=== PATIENT | female | born 1965 | race Caucasian/White ===

== ENCOUNTER 2017-01-11 21:44 | Inpatient (IN) | payer OTHER ==
[~2017-01-11] VITALS: Ht 167.6 cm; Wt 83.4 kg
[~2017-01-11 21:44] MED LIST: FOSAMAX PO; IMITREX50 MG PO; INDERAL LA120 MG PO; MOTRIN800 MG PO; NEURONTIN600 M1 PO; NORTRIPTYLINE H50 MG PO; NORVASC2.5 MG PO; TRAMADOL HCL50 MG PO; ULTRAM ER100 MG PO; [UNRECOGNIZED DRUG - OTHER] PO
[2017-01-11 23:14] LABS: HEMATOCRIT 44.7 % (36.0-46.0); MCH 29.5 PG (29.0-34.0); MCV 92.4 FL (83-99); MEAN PLAT.VOLUME 10.8 uM^3 (9.5-12.4); PLATELET COUNT 213 K/uL (156-360); RBC DIS.WIDTH-CV 13.2 % (11.8-14.6); RBC DIS.WIDTH-SD 44.5 % (39-53); RED BLOOD COUNT 4.84 M/uL (3.80-5.20); WHITE BLOOD COUNT 7.9 K/uL (4.1-10.2)
[2017-01-11 23:24] LABS: CHLORIDE 105 mEq/L (99-109); POTASSIUM 4.2 mEq/L (3.7-5.4); SODIUM 140 mEq/L (136-147)
[2017-01-11 23:25] LABS: GLUCOSE 139 mg/dL (70-99)
[2017-01-11 23:27] LABS: ANION GAP 10 MEQ/L (2-14)
[2017-01-11 23:29] LABS: GFR ESTIMATE (CALCULATED) > 59 mL/min/
[2017-01-11 23:30] LABS: UREA NITROGEN (BUN) 16 mg/dL (9-23)
[2017-01-12 00:36] LABS: TOTAL BILIRUBIN 1.9 mg/dL (0.0-1.0)
[2017-01-12 00:37] LABS: ALKALINE PHOSPHATASE 140 IU/L (3-129)
[2017-01-12 00:40] LABS: DIRECT BILIRUBIN 0.8 mg/dL (0.0-0.3)
[2017-01-12 00:41] LABS: LIPASE 31 U/L (1.0-51.0)
[2017-01-12 00:45] LABS: TROP-I INTERPRETATION NEGATIVE; TROPONIN-I < 0.01 ng/mL (0.0-0.30)
[2017-01-12] MEDS ORDERED: INDERAL LA160 MG PO (01:26)
[2017-01-12] MEDS ORDERED: NORTRIPTYLINE H25 MG PO (01:27)
[2017-01-12] MEDS ORDERED: ALENDRONATE SOD35 MG PO (01:27)
[2017-01-12] MEDS ORDERED: NEURONTIN600 MG PO (01:27)
[2017-01-12] MEDS ORDERED: IMITREX100 MG PO (01:27)
[2017-01-12 02:56] VITALS: BP 138/75
[2017-01-12 06:44] LABS: HEMATOCRIT 41.7 % (36.0-46.0); MCH 30.3 PG (29.0-34.0); MCHC 32.9 G/DL (30.0-36.0); MCV 92.3 FL (83-99); MEAN PLAT.VOLUME 10.6 uM^3 (9.5-12.4); PLATELET COUNT 183 K/uL (156-360); RBC DIS.WIDTH-CV 13.1 % (11.8-14.6); RBC DIS.WIDTH-SD 44.4 % (39-53); RED BLOOD COUNT 4.52 M/uL (3.80-5.20)
[2017-01-12 06:48] LABS: WHITE BLOOD COUNT 4.6 K/uL (4.1-10.2)
[2017-01-12 07:12] VITALS: BP 119/74
[2017-01-12 08:36] LABS: ALKALINE PHOSPHATASE 161 IU/L (3-129); ANION GAP 8 MEQ/L (2-14); CHLORIDE 105 MEQ/L (99-109); GFR ESTIMATE (CALCULATED) > 59 mL/min/; GLUCOSE 139 mg/dL (70-99); LIPASE 22 U/L (1.0-51.0); POTASSIUM 4.3 MEQ/L (3.7-5.4); SAMPLE HEMOLYSIS CHECK 0; SAMPLE ICTERIC CHECK 1; SAMPLE LIPEMIA CHECK 0; SODIUM 138 MEQ/L (136-147); TOTAL BILIRUBIN 2.8 MG/DL (0.0-1.0); UREA NITROGEN (BUN) 16 mg/dL (9-23)
[2017-01-12 09:09] LABS: GAMMA-GT 154 IU/L (4-73)
[2017-01-12 11:18] VITALS: BP 140/89
[2017-01-12 15:58] VITALS: BP 148/92
[2017-01-12 19:19] VITALS: BP 130/75
[2017-01-12 23:36] VITALS: BP 126/70
[2017-01-13 03:52] VITALS: BP 121/72
[2017-01-13 06:49] LABS: BASOPHIL COUNT 0.1 K/uL (0-0.1); EOSINOPHIL (%) 5.6 % (0-5); EOSINOPHIL COUNT 0.3 K/uL (0-0.3); HEMATOCRIT 39.3 % (36.0-46.0); IMMATURE GRANULOCYTE (%) 0.2 % (0.0-0.7); INSTRUMENT ABS NEUTROPHIL CT 3.2 K/uL; MCH 30.8 PG (29.0-34.0); MCHC 33.3 G/DL (30.0-36.0); MCV 92.3 FL (83-99); MONOCYTE (%) 10.7 % (3-12); MONOCYTE COUNT 0.5 K/uL (0-0.8); NEUTROPHIL (%) 62.7 % (45-76); NEUTROPHIL COUNT 3.2 K/uL (1.8-6.4); PLATELET COUNT 178 K/uL (156-360); RBC DIS.WIDTH-CV 13.3 % (11.8-14.6); RBC DIS.WIDTH-SD 45.2 % (39-53); RED BLOOD COUNT 4.26 M/uL (3.80-5.20)
[2017-01-13 07:30] VITALS: BP 136/82
[2017-01-13 08:11] LABS: ALKALINE PHOSPHATASE 181 IU/L (3-129); ANION GAP 6 MEQ/L (2-14); CHLORIDE 105 MEQ/L (99-109); GAMMA-GT 215 IU/L (4-73); GFR ESTIMATE (CALCULATED) > 59 mL/min/; GLUCOSE 100 mg/dL (70-99); POTASSIUM 3.9 MEQ/L (3.7-5.4); SAMPLE HEMOLYSIS CHECK 0; SAMPLE ICTERIC CHECK 1; SAMPLE LIPEMIA CHECK 0; SODIUM 139 MEQ/L (136-147); TOTAL BILIRUBIN 3.6 MG/DL (0.0-1.0); UREA NITROGEN (BUN) 10 mg/dL (9-23)
[2017-01-13 11:35] VITALS: BP 125/79
[2017-01-13 11:53] LABS: HBSG INDEX 0.19; HPCA INDEX 0.18
[2017-01-13 11:55] LABS: ANTI-HEPATITIS A VIRUS (IGM) Nonreactive; HAV INDEX 0.13
[2017-01-13 11:56] LABS: ANTI-HEPATITIS B CORE (IGM) Nonreactive; HBC IgM INDEX 0.09
[2017-01-13 14:55] LABS: PROLACTIN 19.3 NG/ML
[2017-01-13 15:15] VITALS: BP 142/91
[2017-01-13 15:18] LABS: LUTEINIZING HORMONE 42.8 MIU/ML
[2017-01-13 23:45] VITALS: BP 125/80
[2017-01-14 07:18] LABS: ALKALINE PHOSPHATASE 179 IU/L (3-129); ANION GAP 9 MEQ/L (2-14); CHLORIDE 103 MEQ/L (99-109); GFR ESTIMATE (CALCULATED) > 59 mL/min/; GLUCOSE 87 mg/dL (70-99); POTASSIUM 3.9 MEQ/L (3.7-5.4); SAMPLE HEMOLYSIS CHECK 0; SAMPLE ICTERIC CHECK 0; SAMPLE LIPEMIA CHECK 0; SODIUM 139 MEQ/L (136-147); UREA NITROGEN (BUN) 9 mg/dL (9-23)
[2017-01-14 07:19] LABS: TOTAL BILIRUBIN 1.7 MG/DL (0.0-1.0)
[2017-01-14 08:00] VITALS: BP 132/62
[2017-01-14 18:52] VITALS: BP 165/88
[2017-01-14 23:44] VITALS: BP 138/72
[2017-01-15] VITALS (7 sets, daily range): BP systolic 107–161; BP diastolic 59–89
[2017-01-15 07:11] LABS: HEMATOCRIT 41.3 % (36.0-46.0); MCH 30.7 PG (29.0-34.0); MCHC 34.1 G/DL (30.0-36.0); MEAN PLAT.VOLUME 11.1 uM^3 (9.5-12.4); PLATELET COUNT 209 K/uL (156-360); RBC DIS.WIDTH-CV 12.6 % (11.8-14.6); RBC DIS.WIDTH-SD 41.5 % (39-53); RED BLOOD COUNT 4.59 M/uL (3.80-5.20); WHITE BLOOD COUNT 6.3 K/uL (4.1-10.2)
[2017-01-15 07:13] LABS: EOSINOPHIL (%) 0.2 % (0-5); HEMATOCRIT 41.3 % (36.0-46.0); IMMATURE GRANULOCYTE (%) 0.2 % (0.0-0.7); INSTRUMENT ABS NEUTROPHIL CT 5.3 K/uL; LYMPHOCYTE COUNT 0.7 K/uL (1.0-2.8); MCH 30.7 PG (29.0-34.0); MCHC 34.1 G/DL (30.0-36.0); MEAN PLAT.VOLUME 10.8 uM^3 (9.5-12.4); MONOCYTE (%) 5.9 % (3-12); MONOCYTE COUNT 0.4 K/uL (0-0.8); NEUTROPHIL (%) 82.2 % (45-76); NEUTROPHIL COUNT 5.3 K/uL (1.8-6.4); PLATELET COUNT 212 K/uL (156-360); RBC DIS.WIDTH-CV 12.6 % (11.8-14.6); RBC DIS.WIDTH-SD 41.5 % (39-53); RED BLOOD COUNT 4.59 M/uL (3.80-5.20); WHITE BLOOD COUNT 6.5 K/uL (4.1-10.2)
[2017-01-15 07:47] LABS: ALKALINE PHOSPHATASE 183 IU/L (3-129); ANION GAP 10 MEQ/L (2-14); CHLORIDE 101 MEQ/L (99-109); GFR ESTIMATE (CALCULATED) > 59 mL/min/; GLUCOSE 126 mg/dL (70-99); POTASSIUM 4.2 MEQ/L (3.7-5.4); SAMPLE HEMOLYSIS CHECK 0; SAMPLE ICTERIC CHECK 0; SAMPLE LIPEMIA CHECK 0; SODIUM 138 MEQ/L (136-147); TOTAL BILIRUBIN 1.1 MG/DL (0.0-1.0); UREA NITROGEN (BUN) 13 mg/dL (9-23)
[2017-01-16 03:30] VITALS: BP 135/73
[2017-01-16 07:00] VITALS: BP 142/84
[2017-01-16 07:42] LABS: HEMATOCRIT 38.2 % (36.0-46.0); MCH 31.3 PG (29.0-34.0); MCHC 34.3 G/DL (30.0-36.0); MCV 91.4 FL (83-99); MEAN PLAT.VOLUME 10.9 uM^3 (9.5-12.4); PLATELET COUNT 227 K/uL (156-360); RBC DIS.WIDTH-CV 13.2 % (11.8-14.6); RBC DIS.WIDTH-SD 43.8 % (39-53); RED BLOOD COUNT 4.18 M/uL (3.80-5.20)
[2017-01-16 07:46] LABS: WHITE BLOOD COUNT 10.3 K/uL (4.1-10.2)
[2017-01-16 07:51] LABS: ALKALINE PHOSPHATASE 140 IU/L (3-129); ANION GAP 8 MEQ/L (2-14); CHLORIDE 103 MEQ/L (99-109); GFR ESTIMATE (CALCULATED) > 59 mL/min/; GLUCOSE 110 mg/dL (70-99); POTASSIUM 3.8 MEQ/L (3.7-5.4); SAMPLE HEMOLYSIS CHECK 0; SAMPLE ICTERIC CHECK 0; SAMPLE LIPEMIA CHECK 0; SODIUM 140 MEQ/L (136-147); TOTAL BILIRUBIN 0.7 MG/DL (0.0-1.0); UREA NITROGEN (BUN) 12 mg/dL (9-23)
[2017-01-16 11:11] VITALS: BP 131/76
[2017-01-16 15:49] VITALS: BP 131/90
[2017-01-16 20:00] VITALS: BP 130/86
[2017-01-16 23:53] VITALS: BP 128/75
[2017-01-17 03:29] VITALS: BP 143/87
[2017-01-17 08:33] VITALS: BP 143/87
[2017-01-17] MEDS ORDERED: CEFTIN500 MG PO (10:57)
== END 2017-01-17 12:00 | disposition home or self-care (01) | DRG 418 ==
LOC: EME 21:44 → EDOF 01-12 01:10 → 2EAST 01-12 01:10
PROVIDERS: Family Medicine; Thoracic Surgery (Cardiothoracic Vascular Surgery)
PROC: 0FC98ZZ Extirpation of Matter from Common Bile Duct, Via Natural or Artificial Opening Endoscopic (ICD-10-PCS; 2017-01-14)
PROC: 0FT44ZZ Resection of Gallbladder, Percutaneous Endoscopic Approach (ICD-10-PCS; principal; 2017-01-15)
DX: K80.67 Calculus of gallbladder and bile duct with acute and chronic cholecystitis with obstruction (principal); J98.11 Atelectasis; M85.80 Other specified disorders of bone density and structure, unspecified site; G20 Parkinson's disease; I10 Essential (primary) hypertension; G43.909 Migraine, unspecified, not intractable, without status migrainosus; G89.29 Other chronic pain; D49.6 Neoplasm of unspecified behavior of brain; M54.5 Low back pain; R73.9 Hyperglycemia, unspecified; K83.8 Other specified diseases of biliary tract; M54.16 Radiculopathy, lumbar region; E66.9 Obesity, unspecified; Z68.29 Body mass index [BMI] 29.0-29.9, adult
CPT/HCPCS: 71020; 74181; 74330; 76705; 80048; 80053; 80074; 80076; 81003; 82977; 83002; 83690; 84146; 84439; 84443; 84484; 85025; 85027; 87081; 88304; 93005; 94640; 94640 76; 94799; 99202; 99281; 99285; C1757; C1769; J0330; J0360; J0456; J0696; J1100; J1170; J2405; J3010; J7030; J7050; J7120

== ENCOUNTER 2017-03-16 15:03 | Emergency (ER) | payer OTHER ==
[~2017-03-16] VITALS: Ht 167.6 cm; Wt 83.1 kg
[~2017-03-16 15:03] MED LIST changes: +ALENDRONATE SOD35 MG PO; +CEFTIN500 MG PO; +IMITREX100 MG PO; +INDERAL LA160 MG PO; +NEURONTIN600 MG PO; +NORTRIPTYLINE H25 MG PO
[2017-03-16 15:48] LABS: HEMATOCRIT 43.2 % (36.0-46.0); MCH 30.3 PG (29.0-34.0); MCHC 32.9 G/DL (30.0-36.0); MCV 92.1 FL (83-99); MEAN PLAT.VOLUME 10.7 uM^3 (9.5-12.4); PLATELET COUNT 248 K/uL (156-360); RBC DIS.WIDTH-CV 13.1 % (11.8-14.6); RBC DIS.WIDTH-SD 44.6 % (39-53); RED BLOOD COUNT 4.69 M/uL (3.80-5.20); WHITE BLOOD COUNT 6.6 K/uL (4.1-10.2)
[2017-03-16 15:57] LABS: CHLORIDE 107 mEq/L (99-109); POTASSIUM 3.7 mEq/L (3.7-5.4); SODIUM 143 mEq/L (136-147)
[2017-03-16 15:59] LABS: GLUCOSE 98 mg/dL (70-99)
[2017-03-16 16:00] LABS: ANION GAP 8 MEQ/L (2-14)
[2017-03-16 16:02] LABS: ALKALINE PHOSPHATASE 146 IU/L (3-129)
[2017-03-16 16:03] LABS: GFR ESTIMATE (CALCULATED) > 59 mL/min/
[2017-03-16 16:04] LABS: DIRECT BILIRUBIN 0.3 mg/dL (0.0-0.3); UREA NITROGEN (BUN) 11 mg/dL (9-23)
[2017-03-16 16:06] LABS: LIPASE 21 U/L (1.0-51.0)
[2017-03-16 16:14] LABS: QUANTITATIVE HCG < 4.0 MIU/ML
[2017-03-16 17:10] VITALS: BP 173/98
== END 2017-03-16 17:12 | disposition home or self-care (01) ==
LOC: EME 15:03
PROVIDERS: Physician Assistant Medical
DX: R10.9 Unspecified abdominal pain (principal); R20.0 Anesthesia of skin; V99.XXXA Unspecified transport accident, initial encounter; I10 Essential (primary) hypertension
CPT/HCPCS: 73130; 74177; 80048; 80076; 83690; 84702; 85027; 99281; 99284; J7030

== ENCOUNTER 2017-03-19 10:31 | Emergency (ER) | payer OTHER ==
[~2017-03-19] VITALS: Ht 167.6 cm; Wt 83.0 kg
[2017-03-19] MEDS ORDERED: AZELASTINE137 MCG/0. BOTH NARES (11:39)
[2017-03-19] MEDS ORDERED: FLEXERIL10 MG PO (11:58)
[2017-03-19 12:16] VITALS: BP 157/101
== END 2017-03-19 12:10 | disposition home or self-care (01) ==
LOC: EME 10:31
DX: M62.838 Other muscle spasm (principal); M79.602 Pain in left arm; M54.9 Dorsalgia, unspecified; Z90.49 Acquired absence of other specified parts of digestive tract
CPT/HCPCS: 99281; 99283

== ENCOUNTER 2017-09-18 02:09 | Emergency (ER) | payer OTHER ==
[~2017-09-18] VITALS: Ht 167.6 cm; Wt 89.6 kg
[~2017-09-18 02:09] MED LIST changes: +AZELASTINE137 MCG/0. BOTH NARES; +FLEXERIL10 MG PO
[2017-09-18 02:48] LABS: BASOPHIL (%) 0.5 % (0-1); EOSINOPHIL (%) 1.9 % (0-5); EOSINOPHIL COUNT 0.2 K/uL (0-0.3); HEMATOCRIT 42.8 % (36.0-46.0); HEMOGLOBIN 14.1 G/DL (11.9-15.5); IMMATURE GRANULOCYTE (%) 0.2 % (0.0-0.7); LYMPHOCYTE (%) 25.4 % (15-42); LYMPHOCYTE COUNT 2.2 K/uL (1.0-2.8); MCH 31.2 PG (29.0-34.0); MCHC 32.9 G/DL (30.0-36.0); MCV 94.7 FL (83-99); MONOCYTE (%) 8.8 % (3-12); MONOCYTE COUNT 0.8 K/uL (0-0.8); NEUTROPHIL (%) 63.2 % (45-76); NEUTROPHIL COUNT 5.4 K/uL (1.8-6.4); PLATELET COUNT 230 K/uL (156-360); RBC DIS.WIDTH-CV 12.9 % (11.8-14.6); RBC DIS.WIDTH-SD 45.1 % (39-53); RED BLOOD COUNT 4.52 M/uL (3.80-5.20); WHITE BLOOD COUNT 8.5 K/uL (4.1-10.2)
[2017-09-18 03:01] LABS: ALBUMIN 4.2 g/dL (3.2-4.8); CHLORIDE 108 mEq/L (99-109); POTASSIUM 3.3 mEq/L (3.7-5.4); SODIUM 144 mEq/L (136-147)
[2017-09-18 03:03] LABS: GLUCOSE 105 mg/dL (70-99); TOTAL PROTEIN 7.4 g/dL (6.4-8.3)
[2017-09-18 03:05] LABS: TOTAL BILIRUBIN 0.9 mg/dL (0.0-1.0)
[2017-09-18 03:07] LABS: ALKALINE PHOSPHATASE 122 IU/L (3-129); CREATININE 1.3 mg/dL (0.6-1.3); GFR ESTIMATE (CALCULATED) 46 mL/min/
[2017-09-18 03:08] LABS: UREA NITROGEN (BUN) 23 mg/dL (9-23)
[2017-09-18 03:09] LABS: AST (GOT) 20 IU/L (2-34)
[2017-09-18 03:10] LABS: ALT (GPT) 44 IU/L (3-49); LIPASE 81 U/L (1.0-51.0)
[2017-09-18 03:17] LABS: TROP-I INTERPRETATION NEGATIVE; TROPONIN-I 0.02 ng/mL (0.0-0.30)
[2017-09-18 04:37] LABS: APPEARANCE SL.HAZY ((CLEAR)); BILIRUBIN NEGATIVE; BLOOD NEGATIVE; COLOR YELLOW ((YELLOW)); GLUCOSE (STRIP) NEGATIVE; KETONES NEGATIVE; LEUKOCYTES SMALL; NITRITE NEGATIVE; PROTEIN (STRIP) NEGATIVE; SPECIFIC GRAVITY 1.015 (1.000-1.030); UROBILINOGEN 0.2 MG/DL (0.2-1.0)
[2017-09-18 05:03] LABS: BACTERIA RARE /HPF; EPITHELIAL CELLS 1+ /HPF; MUCUS 1+ /LPF; RED BLOOD CELLS 0-5 /HPF (0-5); UCUL ADDED? YES
[2017-09-18 05:12] LABS: TROP-I INTERPRETATION NEGATIVE; TROPONIN-I < 0.01 ng/mL (0.0-0.30)
[2017-09-18 05:26] VITALS: BP 130/81
== END 2017-09-18 05:27 | disposition home or self-care (01) ==
LOC: EME 02:09
PROVIDERS: Emergency Medicine
DX: R55 Syncope and collapse (principal); E87.6 Hypokalemia; R00.1 Bradycardia, unspecified; K76.0 Fatty (change of) liver, not elsewhere classified; J98.11 Atelectasis; R94.31 Abnormal electrocardiogram [ECG] [EKG]; I10 Essential (primary) hypertension; G43.909 Migraine, unspecified, not intractable, without status migrainosus; Z86.79 Personal history of other diseases of the circulatory system; Z86.011 Personal history of benign neoplasm of the brain
CPT/HCPCS: 71046; 76705; 80053; 81003; 83690; 84484; 85025; 87077; 87086; 87186; 93005; 99281; 99284

== ENCOUNTER 2017-12-17 09:59 | Emergency (ER) | payer OTHER ==
[~2017-12-17] VITALS: Ht 167.6 cm; Wt 89.2 kg
[2017-12-17 10:05] VITALS: BP 155/102
== END 2017-12-17 12:21 | disposition home or self-care (01) ==
LOC: EME 09:59
DX: S61.211A Laceration without foreign body of left index finger without damage to nail, initial encounter (principal); W29.3XXA Contact with powered garden and outdoor hand tools and machinery, initial encounter; Y93.H2 Activity, gardening and landscaping; Y92.007 Garden or yard of unspecified non-institutional (private) residence as the place of occurrence of the external cause; Z23 Encounter for immunization
CPT/HCPCS: 73130; 99281; 99284